=== PATIENT | male | born 1960 | race Caucasian/White ===

== ENCOUNTER 2019-10-10 10:38 | Emergency (ER) | payer OTHER ==
[~2019-10-10] VITALS: Ht 190.5 cm; Wt 97.5 kg
[2019-10-10 10:38] VITALS: BP 157/109
--- NOTE | 2019-10-10 11:13 | PHYS DOC ---
Past History Past Medical History: No Pertinent History Additional Past Medical Histor: BROKEN BACK Additional Past Surgical Histo: MINOR BACK SURGERY Additional Smoking Information: CHEWING TOBACCO Alcohol Use: Occasionally Adult General Chief Complaint Chief Complaint: FOOT INJURY PAIN HPI HPI Patient is a 59 year old male who presents with complaint of left foot and ankle pain. The patient states that approximately one hour prior to arrival he was standing on a ladder when he accidentally slipped and fell approximately 9 feet from the ground. He states that he landed on his left foot and tried to roll out of the fall. He states that before rolling he made solid contact with his left foot. Notes pain and swelling along the top lateral portion of the foot near the ankle. States that pain is worse with weightbearing and is unable to bear full weight on his foot since the fall. Denies any pain in his knee, hips, back, and denies head injury. Does have an abrasion along the right forehead which he states he may have suffered due to being scratched by brush towards the end of his fall. Denies any other complaints or injuries. Review of Systems Review of Systems Constitutional: Denies fever or chills [] Eyes: Denies change in visual acuity, redness, or eye pain [] HENT: Denies nasal congestion or sore throat [] Respiratory: Denies cough or shortness of breath [] Cardiovascular: Denies chest pain or edema[] GI: Denies abdominal pain, nausea, vomiting, bloody stools or diarrhea [] : Denies dysuria or hematuria [] Musculoskeletal: Left foot and ankle pain[] Integument: Abrasion to right forehead[] Neurologic: Denies headache, focal weakness or sensory changes [] All other systems were reviewed and found to be within normal limits, except as documented in this note. Allergies Allergies Allergies Coded Allergies Type Severity Reaction Last Updated Verified No Known Drug Allergies 10/10/19 No Physical Exam Physical Exam Constitutional: Well developed, well nourished, no acute distress, non-toxic appearance. [] HENT: Normocephalic, superficial 5 cm linear abrasion along right side of forehead just above right eyebrow arranged in longitudinal orientation, no surrounding ecchymosis or swelling, bilateral external ears normal, oropharynx moist, no oral exudates, nose normal. [] Eyes: PERRLA, EOMI, conjunctiva normal, no discharge. [] Neck: Normal range of motion, no tenderness, supple, no stridor. [] Cardiovascular:Heart rate regular rhythm, no murmur [] Lungs & Thorax: Bilateral breath sounds clear to auscultation [] Abdomen: Bowel sounds normal, soft, no tenderness, no masses, no pulsatile masses. [] Skin: Warm, dry, no erythema, no rash. [] Back: No tenderness, no CVA tenderness. [] Extremities: Swelling overlying the dorsal lateral portion of left foot near ankle joint, direct tenderness to palpation along dorsal lateral aspect of left foot, no tenderness palpation over the medial or lateral malleolus of left ankle, no cyanosis, no clubbing, ROM decreased in left ankle secondary to pain, weightbearing in left foot not tested secondary to pain. [] Neurologic: Alert and oriented X 3, normal motor function, normal sensory fu nction, no focal deficits noted. [] Current Patient Data Vital Signs Vital Signs Date Time Temp Pulse Resp B/P (MAP) Pulse Ox O2 Delivery O2 Flow Rate FiO2 10/10/19 10:38 98.0 98 20 157/109 (125) 96 Room Air Lab Results Not performed EKG EKG Not performed[] Radiology/Procedures Radiology/Procedures [address] [address] IMAGING REPORT Signed PATIENT: FESTUS TIJERINA ACCOUNT: [id number] : 1960 LOCATION: ER AGE: 59 SEX: M EXAM STATUS: REG ER ORD. PHYSICIAN: LINH JOHNSON MD REASON: left lateral ankle and foot pain, fall off ladder PROCEDURE: FOOT LEFT 3V Indications: Fall off of ladder. Pain. Three-view left ankle study: No acute fracture or dislocation or lytic process is seen. There is mild widening of the medial aspect of the mortise ankle joint. This may be due to deltoid ligament injury. IMPRESSION: Widening of the medial aspect of the mortise ankle joint. This could be due to a deltoid ligament injury. Three-view left foot study: There is fracture of the distal medial corner of the head and neck of the talus. There is a separate fracture fragment measuring 17 mm. The talus is completely dislocated laterally with respect to the navicular bone. The calcaneus appears intact and Boehler's angle is maintained. No Lisfranc injury is evident radiographically. IMPRESSION: Fracture dislocation of the talus. Electronically signed by: Maura Bernstein MD (10/10/2019 11:49 AM) [facility] [place] SIGNED BY: MAURA BERNSTEIN MD DATE: 10/10/19 1149 CC: LINH JOHNSON MD; PCP,NO ~ [] Course & Med Decision Making Course & Med Decision Making Pertinent Labs and Imaging studies reviewed. (See chart for details) X-rays were obtained of the left ankle and foot. X-rays confirm dislocation of the talus laterally for MRSA back to the navicular bone with a medial distal fracture of the talus. I consult Dr. Casiano, orthopedic surgeon at [facility]. He stated that due to the mechanism of injury and complexity, this would not be an appropriate patient to be taken care of at [facility] and he recommended that we contact a higher level of care. After speaking with the patient, they agreed for contact be made with the [facility]. After speaking with the transfer line, as informed that the patient would be accepted by Dr. Blankenship of the trauma service. The patient will be transferred directly to [facility] for further evaluation and care. IV access was obtained here in the emergency department and a posterior splint was placed on the left lower leg to immobilize injury. This was placed by the emergency department nurse. My evaluation post splint application showed normal capillary refill in all 5 digits of the left foot and normal sensation. A room assignment was given an [facility] at 1405. Patient was administered IV fentanyl and IV morphine in the emergency department to assist with pain control. EMS arrived at 1442 transport patient as direct admission to [facility]. Dragon Disclaimer Dragon Disclaimer This electronic medical record was generated, in whole or in part, using a voice recognition dictation system. Departure Departure: Impression: Primary Impression: Closed dislocation of left talus Additional Impressions: Fracture, talus closed Tear of deltoid ligament of left ankle Fall from ladder Disposition: XFER SHT-TRM HOSP Condition: STABLE Referrals: PCP,NO (PCP) Problem Qualifiers Primary Impression: Closed dislocation of left talus Encounter type: initial encounter Qualified Codes: S93.05XA - Dislocation of left ankle joint, initial encounter Additional Impressions: Fracture, talus closed Encounter type: initial encounter Talus location: body Fracture alignment: displaced Laterality: left Qualified Codes: S92.122A - Displaced fracture of body of left talus, initial encounter for closed fracture Tear of deltoid ligament of left ankle Encounter type: initial encounter Qualified Codes: S93.422A - Sprain of deltoid ligament of left ankle, initial encounter Fall from ladder Encounter type: initial encounter Qualified Codes: W11.XXXA - Fall on and from ladder, initial encounter LINH JOHNSON MD Oct 10, 2019 11:13
--- NOTE | 2019-10-10 11:52 | RAD ---
Indications: Fall off of ladder. Pain. Three-view left ankle study: No acute fracture or dislocation or lytic process is seen. There is mild widening of the medial aspect of the mortise ankle joint. This may be due to deltoid ligament injury. IMPRESSION: Widening of the medial aspect of the mortise ankle joint. This could be due to a deltoid ligament injury. Three-view left foot study: There is fracture of the distal medial corner of the head and neck of the talus. There is a separate fracture fragment measuring 17 mm. The talus is completely dislocated laterally with respect to the navicular bone. The calcaneus appears intact and Boehler's angle is maintained. No Lisfranc injury is evident radiographically. IMPRESSION: Fracture dislocation of the talus. Electronically signed by: Taiwo Bernstein MD (10/10/2019 11:49 AM) [facility] [place]
[2019-10-10] MEDS: ONDANSETRON PF 4 MG/2 ML VIAL. IVP ONE (13:18)
[2019-10-10] MEDS: IV NORMAL SALINE 1,000ML 1,000 ML IV ONE (13:18)
[2019-10-10] MEDS ORDERED: MORPHINE SULFATE 4 MG/ML DISP.SYRIN. IV ONE (14:30)
== END 2019-10-10 14:45 | disposition short-term general hospital (02) ==
LOC: ER 10:38
DX: S92.122A Displaced fracture of body of left talus, initial encounter for closed fracture (principal); S93.402A Sprain of unspecified ligament of left ankle, initial encounter; S00.81XA Abrasion of other part of head, initial encounter; F17.220 Nicotine dependence, chewing tobacco, uncomplicated; W11.XXXA Fall on and from ladder, initial encounter; Y93.89 Activity, other specified; Y92.89 Other specified places as the place of occurrence of the external cause; Y99.8 Other external cause status
CPT/HCPCS: 29515; 73610; 73630; 96374; 96375; 99285; J2405; J3010; J7030